=== PATIENT | male | born 1965 | race Caucasian/White ===

== ENCOUNTER → 2020-01-21 | Outpatient (CLI) | payer OTHER ==
[~2020-01-21] MED LIST: AMLO5TAB6 PO; HYDR25TAB PO; LOSA100T50 PO; MULT-6 PO
--- NOTE | 2020-01-22 11:56 | RADONC ---
RADIATION ONCOLOGY CONSULTATION NOTE DATE: 01/21/2020 CHART #: [id number] DIAGNOSIS: Prostate cancer. STAGE: IV A, [id number], initial PSA 4.0, Keyshawn score 9 (4-5) grade group 5. ECOG PERFORMANCE STATUS: 0. CONSULTATION NOTE: Mr. Palm is a very pleasant 54-year-old white male with the diagnosis of what appears to be a stage IV A,[id number], M0, poorly differentiated [place] score 9 (4-5) adenocarcinoma of the prostate, grade group 5, with an initial PSA level of 4.0, who is now presenting to us today with biochemical failure for initiation of postoperative radiation therapy in attempt to achieve local control. HISTORY OF PRESENT ILLNESS: The patient was initially found to have a pretreatment, PSA level 4.0. On June 01, 2018, the patient underwent a radical prostatectomy. Pathology revealed a right external iliac lymph node which was positive for metastatic disease. All other lymph nodes were negative for malignancy. The prostate itself had extensive disease which was poorly differentiated, Keyshawn score 9 (4-5). There was tumor on both the left and right sides of the prostate with extension into the seminal vesicles. The patient has been followed since surgery and his basic PSA following surgery was less than 0.1. On 10/21/2019, his post-treatment PSA had now risen to 0.3. In light of his locally advanced disease and seminal vesicle involvement and lymph node involvement, he has now been referred to us to discuss postoperative radiation therapy in attempt to achieve local control. I will be ordering a new PSA prior to simulation. PAST MEDICAL HISTORY: The patient's past medical history is positive for hypertension. He also has a history of a hydrocele of the left testicle. ALLERGIES: The patient has NO KNOWN DRUG ALLERGIES. SOCIAL HISTORY: The patient does not smoke cigarettes. He drinks alcohol occasionally. FAMILY HISTORY: The patient's family history is negative for prostate cancer or other malignancies. REVIEW OF SYSTEMS: The patient's review of systems is positive for some occasional urinary incontinence since his surgery. It is otherwise noncontributory. Denies nausea, vomiting, fevers, chills, night sweats, diplopia, headaches, anxiety or depression, anorexia, weight loss, visual disturbances, chest pain, urinary or bowel difficulties, bone pain, or neurological problems. PHYSICAL EXAMINATION: The patient is a well-developed, well-nourished male in no acute distress. HEENT exam is normocephalic, atraumatic. Extraocular movements are intact. There is no palpable cervical, supraclavicular, infraclavicular, axillary, or inguinal lymphadenopathy present. Lungs are clear to auscultation and percussion. Heart has a regular rate and rhythm. Abdomen is benign with no hepatosplenomegaly, masses, or tenderness. Rectal examination reveals a normal anal sphincter tone. His prostate bed is smooth with no evidence of nodularity. Skeletal examination reveals no tenderness to pressure or percussion of the bony skeleton. Extremities reveal no clubbing, cyanosis, or edema. Neurologic exam is grossly intact, as is the remainder of the physical examination. ASSESSMENT: Clearly, the patient is a candidate for external beam radiation therapy and I have so informed him. I have discussed with the patient in detail the potential benefits as well as possible acute and chronic sequelae of external beam radiation therapy. We discussed the logistics of treatment planning, simulation and subsequent fractionated daily radiation treatments. I have scheduled the patient for the next available simulation slot and radiation treatments will begin subsequently. Thank you for allowing us to participate in the care of this very pleasant gentleman. I will keep you informed as to any new developments as they occur. As always with warm regards.
== END ==
LOC: M ONCR 12:43
PROVIDERS: ATTEND Radiology Radiation Oncology
DX: C61 Malignant neoplasm of prostate (principal)

== ENCOUNTER → 2020-02-25 | Outpatient (RCR) | payer OTHER ==
--- NOTE | 2020-01-30 13:52 | RADONC ---
RADIATION ONCOLOGY SIMULATION NOTE DATE: 01/28/2020 CHART NUMBER: [id number] SIMULATION NOTE: Mr. Palm was taken to the CT scan for CT simulation of his prostate bed field. CT was accomplished without difficulty or discomfort. Radiation treatment planning is underway and radiation treatments will begin subsequently. An immobilization device was created without difficulty or discomfort. It will be used throughout the course of treatment. I was physically present throughout the course of CT simulation.
--- NOTE | 2020-02-11 12:35 | RADONC ---
RADIATION ONCOLOGY PROGRESS NOTE DATE: 02/10/2020 CHART #: [id number] Mr. Errol Palm with a diagnosis of adenocarcinoma of the prostate stage IV A ([id number], with an initial PSA of 4.0 and a [place] score of nine (4+5) grade group 5, is currently receiving local regional radiotherapy. He appears to be tolerating his radiotherapy reasonably well. He is denying any nausea, vomiting, diarrhea, dysuria, hematuria or blood per rectum. His energy level is excellent and he is able to maintain most day-to-day activities without any alteration of his lifestyle. He denies skin irritation. EXAMINATION FINDINGS: The skin within the irradiated volume shows no evidence of erythema or desquamation. There is no palpable peripheral lymphadenopathy. Lungs are clear. Abdomen without evidence of hepatomegaly, masses or deep abdominal tenderness. The remainder of the physical examination is unchanged. IMPRESSION: Tolerating therapy well. PLAN: Treatments to continue.
--- NOTE | 2020-02-18 09:38 | RADONC ---
RADIATION ONCOLOGY PROGRESS NOTE DATE: 02/17/2020 CHART #: [id number] Mr. Palm is presently at a dose of 1620 cGy to his prostate bed and is tolerating treatments quite well at this point with no complaints related to his radiation therapy. He is having no significant urinary or bowel difficulties and no bone pain. REVIEW OF SYSTEMS: The patient's review of systems is noncontributory. Denies nausea, vomiting, fevers, chills, night sweats, diplopia, headaches, anxiety or depression, anorexia, weight loss, visual disturbances, chest pain, urinary or bowel difficulties, bone pain, or neurological problems. PHYSICAL EXAMINATION: The physical examination was deferred due to COVID-19 restrictions. IMPRESSION: Mr. Palm is tolerating treatments quite well and radiation will continue as scheduled.
--- NOTE | 2020-02-24 20:44 | RADONC ---
RADIATION ONCOLOGY PROGRESS NOTE DATE: 02/24/2020 CHART NUMBER: [id number] Mr. Palm is presently at a dose of 2520 cGy to his prostate bed and is complaining of significant rectal pain. He reports that he went to the emergency room yesterday and was given Percocet and MiraLax. The patient's review of systems is positive for rectal pain. He reports that his bowel movements are soft, and he has no constipation. He is using Preparation H or Anusol, as well as his Percocet. On physical exam, his skin is in good condition with no evidence of moist or dry desquamation. I discussed with him continuing treatment at this point since he is better with Percocet. We will continue to follow him closely. He may need a treatment break next week, but he prefers to keep pushing on. He does have a history of hemorrhoids, and I suspect that this is a significant contributing factor to his problem since his radiation dose is actually quite low. Radiation will continue with close observation.
== END ==
LOC: M ONCR 01-28 13:25
PROVIDERS: ATTEND Radiology Radiation Oncology
DX: C61 Malignant neoplasm of prostate (principal)

== ENCOUNTER → 2020-03-26 | Outpatient (RCR) | payer OTHER ==
--- NOTE | 2020-03-03 08:52 | RADONC ---
RADIATION ONCOLOGY PROGRESS NOTE DATE: 03/02/2020 CHART NUMBER: [id number] Mr. Palm is presently at a dose of 3420 cGy to his prostate bed and is tolerating treatments quite well but continuing to complain of rectal burning. This remains basically unchanged. The patient's review of systems is positive for rectal burning but is otherwise noncontributory. He denies nausea, vomiting, fevers, chills, night sweats, diplopia, headaches, anxiety or depression, anorexia, weight loss, visual disturbances, chest pain, urinary or bowel difficulties, bone pain, or neurological problems. PHYSICAL EXAMINATION: Physical examination was deferred at this point secondary to COVID-19 precautions. ASSESSMENT: Mr. Palm is continuing with his radiation at this point. He has been given the option of a treatment break. He has also been given skin care instructions. At this time the patient says he is tolerating his discomfort and wishes to continue with radiation.
--- NOTE | 2020-03-10 08:54 | RADONC ---
RADIATION ONCOLOGY PROGRESS NOTE DATE: 03/09/2020 CHART NUMBER: [id number] Mr. Palm is presently at a dose of 4320 cGy to his prostate bed and generally continues to tolerate radiation with his rectal discomfort. This is unchanged. The patient's review of systems is positive for rectal discomfort but is otherwise noncontributory. He denies nausea, vomiting, fevers, chills, night sweats, diplopia, headaches, anxiety or depression, anorexia, weight loss, visual disturbances, chest pain, urinary or bowel difficulties, bone pain, or neurological problems. PHYSICAL EXAMINATION: Physical exam was deferred as per COVID-19 precautions. ASSESSMENT: The patient is tolerating treatments quite well. I have offered him a treatment break once again, but he wishes to continue as scheduled. He says the rectal discomfort is tolerable.
--- NOTE | 2020-03-17 08:19 | RADONC ---
RADIATION ONCOLOGY PROGRESS NOTE DATE: 03/16/2020 CHART NUMBER: [id number] PROGRESS NOTE: Mr. Palm is presently at a dose of 5040 centigrade to his prostate bed and continues to have rectal pain. In addition, the patient noted that he had a blood clot this morning. REVIEW OF SYSTEMS: The patient's review of systems is otherwise noncontributory. Denies nausea, vomiting, fevers, chills, night sweats, diplopia, headaches, anxiety or depression, anorexia, weight loss, visual disturbances, chest pain, urinary or bowel difficulties, bone pain, or neurological problems. PHYSICAL EXAMINATION: The patient's skin is in good condition with no evidence of moist or dry desquamation. The remainder of his physical exam remains unchanged. Mr. aPlm was treated today but will be on rest the remainder of the week. After doing a literature review, I attempted to send in a prescription for sucralfate enemas. (2 grams twice daily). I contacted the pharmacy and unfortunately this treatment is not available in the [place]. In light of that, we will continue with the measures we are using and the patient will remain on break until Monday. He has my cell phone number and office number if I could be of any assistance in the meantime, and we will follow him closely.
--- NOTE | 2020-03-24 09:38 | RADONC ---
RADIATION ONCOLOGY PROGRESS NOTE DATE: 03/23/2020 CHART NUMBER: [id number] PROGRESS NOTE: Mr. Palm is presently at a dose of 5400 cGy to his prostate bed and had been on rest all of last week. The patient came in today reporting that this is the first day he has no pain. He did have rectal pain however over the weekend. I asked the patient if he wants to continue rest for a few more days but he wishes to restart today. We will therefore restart study. REVIEW OF SYSTEMS: The patient's review of systems is basically noncontributory today. He did have rectal pain yesterday and Monday. Denies nausea, vomiting, fevers, chills, night sweats, diplopia, headaches, anxiety or depression, anorexia, weight loss, visual disturbances, chest pain, urinary or bowel difficulties, bone pain, or neurological problems. PHYSICAL EXAMINATION: The patient's skin is in good condition with no evidence of moist or dry desquamation. The remainder of his physical exam remains unchanged. Mr. Palm is resuming radiation today and treatments will continue as scheduled.
== END ==
LOC: M ONCR 02-26 14:12
PROVIDERS: ATTEND Radiology Radiation Oncology
DX: C61 Malignant neoplasm of prostate (principal)

== ENCOUNTER 2020-04-01 15:53 | Outpatient (RCR) | payer OTHER ==
--- NOTE | 2020-04-02 10:07 | RADONC ---
RADIATION ONCOLOGY PROGRESS NOTE: DATE: 03/30/2020 CHART NUMBER: [id number] Mr. Manzanares is presently at a dose of 6300 cGy to his prostate bed and is tolerating treatments with some pain. He reports that the pain, however has improved somewhat. REVIEW OF SYSTEMS: The patient's review of systems is positive for pain on defecation but is otherwise noncontributory. He denies nausea, vomiting, fevers, chills, night sweats, diplopia, headaches, anxiety or depression, anorexia, weight loss, visual disturbances, chest pain, urinary or bowel difficulties, bone pain, or neurological problems. PHYSICAL EXAMINATION: The patient's skin is in good condition with no evidence of moist or dry desquamation. The remainder of his physical exam remains unchanged. Mr. Manzanares is tolerating treatments quite well and radiation will continue as scheduled.
--- NOTE | 2020-04-06 11:44 | RADONC ---
RADIATION ONCOLOGY TREATMENT SUMMARY: DATE: 04/01/2020 CHART NUMBER: [id number] DIAGNOSIS: Prostate cancer. STAGE: IV A, T3b, N1, M0, initial PSA 4.0, Keyshawn score 9 (5-4), grade group 5. ECOG PERFORMANCE STATUS: 0 Mr. Palm is a very pleasant 54-year-old white male with the diagnosis of what appears to be a stage IV A, little pT3b, pN1, M0, poorly differentiated, Keyshawn score (94-5)adenocarcinoma of the prostate, grade group 5, with an initial PSA level 4.0 who presented to us following biochemical failure for initiation of postoperative radiation therapy in attempt to achieve local control. We treated the patient to his prostate bed for a total dose of 6660 cGy delivered in 37 fractions of 180 cGy each over 55 elapsed days from 02/05/2020 through 04/01/2020. The patient's prostate bed was treated on a linear accelerator utilizing a 15 MV photon beam via 3D conformal technique with anterior, posterior left and right lateral hewitt. We initially treated a larger area to a dose of 4500 cGy and subsequently coned down for the remaining 2160 cGy in order to maintain the small bowel and other structures within their tolerance limits. Mr. Palm tolerated his treatments with some difficulty and discomfort. He had hemorrhoidal and rectal discomfort throughout the vast majority of his treatment. He was however able to complete therapy as prescribed. I have scheduled the patient to see me again in 1 month for further followup. He will also continue to be followed by his other physicians as well. cc: Soy Grewal MD
== END 2020-04-26 ==
LOC: M ONCR 15:53
PROVIDERS: ATTEND Radiology Radiation Oncology
DX: C61 Malignant neoplasm of prostate (principal)

== ENCOUNTER → 2020-04-29 | Outpatient (CLI) | payer OTHER ==
--- NOTE | 2020-05-05 11:29 | RADONC ---
RADIATION ONCOLOGY FOLLOWUP NOTE DATE: 04/29/2020 This is a telemedicine visit. The patient was informed of the risks including security breech, technological failure, inability to perform a comprehensive physical exam which could delay or prevent an accurate diagnosis, and potential complications from treatment decisions rendered over a telemedicine platform. The patient understands and consented to the use of telehealth services phone only. CHART NUMBER: [id number] DIAGNOSIS: Prostate cancer. STAGE: IV A, T3b, N1, M0, initial PSA 4.0, Keyshawn score 9 (4-5), grade group 5. ECOG PERFORMANCE STATUS: 0 FOLLOWUP NOTE: Mr. aPlm is a very pleasant 55-year-old white male with the diagnosis of what appears to be a stage IV A, pT3b, N1, M0, poorly differentiated [place] score 9 (4-5) adenocarcinoma of prostate, grade group 5 with an initial PSA level of 4.0 who is now presenting to us today for routine followup visit 1 month post completion of external beam radiation therapy. The patient presents today reporting that he is doing quite well with no complaints at this time related to his radiation therapy or disease. He has no urinary or bowel difficulties and no bone pain. REVIEW OF SYSTEMS: The patient's review of systems is noncontributory. Denies nausea, vomiting, fevers, chills, night sweats, diplopia, headaches, anxiety or depression, anorexia, weight loss, visual disturbances, chest pain, urinary or bowel difficulties, bone pain, or neurological problems. PHYSICAL EXAMINATION: The patient's physical examination was deferred at this time as per COVID-19 precautions. This was a telephone consultation. ASSESSMENT: The patient is clinically doing quite well at this time. I have scheduled him for a routine followup in our office in 3 months' time. He will also continue to be followed by his other physicians in the meantime. A PSA level was done on April 23, 2020 and is now down to less than 0.05. cc: Soy Grewal MD
== END ==
LOC: M ONCR 14:58
PROVIDERS: ATTEND Radiology Radiation Oncology
DX: C61 Malignant neoplasm of prostate (principal)

== ENCOUNTER → 2022-02-23 | Outpatient (CLI) | payer OTHER ==
[~2022-02-23] MED LIST changes: +AMLO1TAB24 PO; -AMLO5TAB6 PO; +CHLO50TA PO; +HYDR-3490 PO; -HYDR25TAB PO; +LOSA100T45 PO; -LOSA100T50 PO; +TROS20TA3 PO; +VITA100093 PO
== END ==
LOC: M LABSMTC 10:15
PROVIDERS: ATTEND Anesthesiology
DX: Z11.52 Encounter for screening for COVID-19 (principal); Z20.822 Contact with and (suspected) exposure to COVID-19

== ENCOUNTER 2022-02-28 11:26 | Day surgery (SDC) | payer OTHER ==
[~2022-02-28] VITALS: Ht 165.1 cm; Wt 78.9 kg
[~2022-02-28 11:26] MED LIST changes: +NS 1,000 ML IV ONE
[2022-02-28] MEDS ORDERED: fentaNYL 100 MCG/2 ML INJECTION As Ordered ONE (11:54)
[2022-02-28] MEDS ORDERED: propofoL 200 MG/20 ML VIAL As Ordered ONE (12:32)
[2022-02-28] MEDS ORDERED: LIDOCAINE 2% 100MG/5ML SDV (FOR ANES.) As Ordered ONE (12:32)
[2022-02-28 13:33] VITALS: BP 119/78
== END 2022-02-28 13:39 | disposition home or self-care (01) ==
LOC: M OPP 11:26
PROVIDERS: ATTEND Internal Medicine Gastroenterology
DX: D12.2 Benign neoplasm of ascending colon (principal); D12.4 Benign neoplasm of descending colon; K57.30 Diverticulosis of large intestine without perforation or abscess without bleeding; K64.8 Other hemorrhoids; K92.1 Melena; R63.4 Abnormal weight loss; Z79.899 Other long term (current) drug therapy; Z85.46 Personal history of malignant neoplasm of prostate; Z92.3 Personal history of irradiation; Z95.818 Presence of other cardiac implants and grafts
CPT/HCPCS: 43235; 45385; 88305; J3010